=== PATIENT | male | born 1970 | race Caucasian/White ===

== ENCOUNTER 2017-02-19 16:15 | Emergency (ER) | payer OTHER ==
[~2017-02-19] VITALS: Ht 175.3 cm; Wt 87.5 kg
--- NOTE | ~2017-02-19 | EKG ---
[address] [id number] [place] [address] ELECTROCARDIOGRAM REPORT Name: FLORENCE LINDSEY Room #: SALMA Koehler#: [id number] Admission: 02/19/17 Attend Phys: Discharge: 02/19/17 Date of : 68 Report #: [id number] THIS REPORT FOR: //name// 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 ROMERO : 1970 Requested By: Baron Jimenez Order Number: [id number] MD: Rashel Aguilar Measurements Intervals Rupert Rate: 117 P: 54 KS: 177 QRS: 7 QRSD: 78 T: 39 QT: 289 QTc: 403 Interpretive Statements Sinus tachycardia Possible Anteroseptal infarct, old Baseline wander in lead(s) V4 Compared to ECG 12/02/2015 16:02:19 No significant change was found Electronically Signed On 02-20-2017 8:23:12 CDT by Rashel Aguilar [email or web address] <ELECTRONICALLY SIGNED> By: Rashel Aguilra MD, [facility] 02/20/17 0823 1623 1623 Rashel Aguilar MD, [facility] /EPI
[~2017-02-19 16:15] MED LIST: B-12500 MCG PO; TESTOSTERON100 MG/ML IM
[2017-02-19] MEDS ORDERED: B12INJ IM (16:29)
[2017-02-19] MEDS ORDERED: LISINOPRIL5 MG PO (16:29)
[2017-02-19 16:32] LABS: ABSOLUTE NEUTROPHILS 4.4 thou/uL (1.4-8.2); BASOPHILS 0.4 % (0.0-2.0); EOSINOPHILS 0.8 % (0.0-3.0); HEMATOCRIT 39.6 % (42.0-52.0); HEMOGLOBIN 13.9 gm/dL (14.0-18.0); LYMPHOCYTES 17.5 % (24.0-44.0); MCH 34.9 pg (26.0-34.0); MCHC 35.1 g/dL (28.0-37.0); MCV 99.4 fL (80.0-100.0); MONOCYTES 11.1 % (1.0-8.0); PLATELET COUNT 246 thou/uL (150-400); POLYS 70.2 % (36.0-66.0); RBC 3.98 mil/uL (4.50-6.00); RDW 13.6 % (10.5-14.5); WBC 6.3 thou/uL (4.0-11.0)
[2017-02-19 16:34] LABS: MANUAL DIFF NO
[2017-02-19 16:36] LABS: ANION GAP 9 mmol/L (7-16); BUN 12 mg/dL (7-18); CALCIUM 9.1 mg/dL (8.5-10.1); CHLORIDE 105 mmol/L (98-107); CO2 28 mmol/L (21-32); CREATININE 1.4 mg/dL (0.7-1.3); GLUCOSE 130 mg/dL (74-106); POTASSIUM 3.6 mmol/L (3.5-5.1); SODIUM 142 mmol/L (136-145)
[2017-02-19 16:43] LABS: ABG SAMPLE TYPE ARTERIAL; BE(vivo) -2.2 mmol/L (-2 to +3); LACTATE 1.23 mmol/L (0.5-2.0); O2(CT) 19.7 mL/dL (15.0-23.0); PCO2 36.1 mmHg (35.0-45.0); PO2 185.9 mmHg (80.0-100.0); pH 7.403 (7.360-7.450); sO2 99.3 % (92.0-98.0); tCO2 23.1 mmol/L (24.0-30.0)
[2017-02-19 16:44] LABS: ABG COMMENT MASK; STICK SITE L.RADIAL; VDS 15LPM NON REBREATHER cc
[2017-02-19 16:48] LABS: NT-PRO BRAIN NAT PEPTIDE 10 pg/mL (<300); TROPONIN-I < 0.04 ng/mL (<0.04-0.07)
[2017-02-19 18:19] VITALS: BP 151/101
== END 2017-02-19 18:20 | disposition home or self-care (01) ==
LOC: ER 16:15
PROVIDERS: Nurse Practitioner
DX: T67.5XXA Heat exhaustion, unspecified, initial encounter (principal); E86.0 Dehydration; R42 Dizziness and giddiness; R06.00 Dyspnea, unspecified; J70.5 Respiratory conditions due to smoke inhalation; F10.99 Alcohol use, unspecified with unspecified alcohol-induced disorder; Z85.47 Personal history of malignant neoplasm of testis; X58.XXXA Exposure to other specified factors, initial encounter; Y93.89 Activity, other specified; Y92.89 Other specified places as the place of occurrence of the external cause; Y99.8 Other external cause status